=== PATIENT | male | born 1960 | race African-American/Black ===

== ENCOUNTER 2022-02-05 14:27 | Emergency (ER) | payer SELFPAY ==
[~2022-02-05] VITALS: Ht 170.2 cm; Wt 68.0 kg
[2022-02-05 14:33] VITALS: BP 147/84
[2022-02-05] MEDS ORDERED: SODIUM CHLORIDE 0.9% 1,000 ML IV ONE (14:45)
[2022-02-05 14:50] LABS: BASOPHILS % 1.1 % (0.0-2.0); EOSINOPHILS % 0.9 % (0.0-5.0); HEMOGLOBIN. 11.3 g/dL (14.0-18.0); LYMPHOCYTES % 13.3 % (20.0-50.0); MEAN CORPUSCULAR HEMOGLOBIN 28.3 pg (28.0-32.0); MEAN CORPUSCULAR VOLUME 84.9 fL (80.0-94.0); MEAN PLATELET VOLUME 7.6 fl (7.4-10.4); MONOCYTES % 10.6 % (2.0-8.0); NEUTROPHILS % 74.1 % (40.0-76.0); PLATELET 306 x1000/uL (130-400); RED CELL DISTRIBUTION WIDTH 15.5 % (11.6-14.6)
[2022-02-05 14:59] LABS: CHLORIDE 101 mEq/L (98-107)
[2022-02-05 15:07] LABS: ETHANOL BLOOD < 10 mg/dL
== END 2022-02-05 19:17 | disposition home or self-care (01) ==
LOC: ER 14:27
DX: E86.0 Dehydration (principal); E78.00 Pure hypercholesterolemia, unspecified; I10 Essential (primary) hypertension; G40.909 Epilepsy, unspecified, not intractable, without status epilepticus; F17.210 Nicotine dependence, cigarettes, uncomplicated; F12.10 Cannabis abuse, uncomplicated; F10.21 Alcohol dependence, in remission; Z59.00 Homelessness unspecified; Z87.828 Personal history of other (healed) physical injury and trauma
CPT/HCPCS: 36415; 80053; 80307; 80320; 80329; 85025; 99283; J7030; G0480